=== PATIENT | female | born 1995 | race Caucasian/White ===

== ENCOUNTER 2017-12-25 19:06 | Emergency (ER) | payer SELFPAY ==
[~2017-12-25] VITALS: Ht 160 cm; Wt 66.0 kg
[2017-12-25 19:12] VITALS: BP 113/75
[2017-12-25 19:39] LABS: BASOPHILS # (AUTO) 0.07 x10^3/uL (0-0.1); BASOPHILS % (AUTO) 0 % (0-1); EOSINOPHILS # (AUTO) 0.03 x10^3/uL (0-0.4); EOSINOPHILS % (AUTO) 0 % (1-7); LYMPHOCYTES # (AUTO) 1.97 x10^3/uL (1-3.4); LYMPHOCYTES % (AUTO) 12 % (22-44); MD NO; MEAN CORPUSCULAR HEMOGLOBIN 29.3 pg (27.0-34.8); MEAN CORPUSCULAR HGB CONC 33.5 g/dL (32.4-35.8); MEAN CORPUSCULAR VOLUME 87.6 fL (80-100); MEAN PLATELET VOLUME 6.7 fL (7.4-10.4); MONOCYTES # (AUTO) 1.05 x10^3/uL (0.2-0.8); MONOCYTES % (AUTO) 6 % (2-9); NEUTROPHILS # (AUTO) 13.28 x10^3/uL (1.8-6.8); NEUTROPHILS % (AUTO) 81 % (42-75); PLATELET COUNT 321 x10^3/uL (130-400); RED BLOOD COUNT 4.56 x10^6/uL (3.82-5.3); RED CELL DISTRIBUTION WIDTH 12.5 % (9.6-15.2)
[2017-12-25 19:49] LABS: ALANINE AMINOTRANSFERASE 14 U/L (12-78); ALBUMIN 3.2 g/dL (3.4-5.0); ANION GAP 7 mmol/L (5-15); CALCIUM 8.4 mg/dL (8.5-10.1); CHLORIDE 106 mmol/L (98-107); CREATININE 0.84 mg/dL (0.55-1.02)
[2017-12-25 19:54] LABS: ALKALINE PHOSPHATASE 77 U/L (45-117); BILIRUBIN,TOTAL 0.5 mg/dL (0.2-1.0); TOTAL PROTEIN 7.7 g/dL (6.4-8.2)
[2017-12-25 20:13] LABS: MICROSCOPIC INDICATED
[2017-12-25 20:14] LABS: CULTURE INDICATED? YES
[2017-12-25] MEDS ORDERED: HYDROmorphone 2 MG/ML, 1ML ONE (20:29)
[2017-12-25] MEDS ORDERED: HYDROmorphone 2 MG/ML, 1ML IM ONE (20:30)
[2017-12-25] MEDS ORDERED: ONDANSETRON ODT 4 MG PO ONE (20:30)
[2017-12-25] MEDS ORDERED: ONDANSETRON ODT 4 MG ONE (20:30)
== END 2017-12-25 21:29 | disposition home or self-care (01) ==
LOC: ED 21:23
DX: N30.00 Acute cystitis without hematuria (principal)
CPT/HCPCS: 36415; 74176; 80053; 81001; 84703; 85025; 87077; 87086; 87186; 96372; 99285; J1170; Q0162

== ENCOUNTER 2017-12-28 16:50 | Emergency (ER) | payer SELFPAY ==
[~2017-12-28] VITALS: Ht 160 cm; Wt 65.8 kg
[2017-12-28] MEDS ORDERED: ACETAMINOPHEN 500 MG TABLET ONE (17:43)
[2017-12-28] MEDS ORDERED: SODIUM CHLORIDE FLUSH 10ML SYR IVF ONE (18:00)
[2017-12-28] MEDS ORDERED: ACETAMINOPHEN 500 MG TABLET PO ONE (18:00)
[2017-12-28] MEDS ORDERED: SODIUM CHLORIDE 0.9% 1,000ML IVBOLUS ONE (18:00)
[2017-12-28 18:47] LABS: ALANINE AMINOTRANSFERASE 19 U/L (12-78); ALBUMIN 2.7 g/dL (3.4-5.0); ANION GAP 9 mmol/L (5-15); CALCIUM 8.8 mg/dL (8.5-10.1); CHLORIDE 101 mmol/L (98-107); CREATININE 0.67 mg/dL (0.55-1.02)
[2017-12-28 18:52] LABS: ALKALINE PHOSPHATASE 91 U/L (45-117); BILIRUBIN,TOTAL 0.4 mg/dL (0.2-1.0); TOTAL PROTEIN 7.4 g/dL (6.4-8.2)
[2017-12-28] MEDS ORDERED: CEFTRIAXONE PMX 1GM/50ML 50 ML ONE (18:58)
[2017-12-28] MEDS ORDERED: CEFTRIAXONE 1,000 MG in SODIUM CHLORIDE 0.9% 50 ML IV ONE (19:00)
[2017-12-28 19:01] LABS: BASOPHILS # (AUTO) 0.02 x10^3/uL (0-0.1); BASOPHILS % (AUTO) 0 % (0-1); EOSINOPHILS % (AUTO) 0 % (1-7); LYMPHOCYTES # (AUTO) 1.43 x10^3/uL (1-3.4); LYMPHOCYTES % (AUTO) 13 % (22-44); MD NO; MEAN CORPUSCULAR HEMOGLOBIN 29.3 pg (27.0-34.8); MEAN CORPUSCULAR HGB CONC 33.6 g/dL (32.4-35.8); MEAN PLATELET VOLUME 6.8 fL (7.4-10.4); MONOCYTES # (AUTO) 1.12 x10^3/uL (0.2-0.8); MONOCYTES % (AUTO) 11 % (2-9); NEUTROPHILS # (AUTO) 8.09 x10^3/uL (1.8-6.8); NEUTROPHILS % (AUTO) 76 % (42-75); PLATELET COUNT 347 x10^3/uL (130-400); RED BLOOD COUNT 4.15 x10^6/uL (3.82-5.3)
[2017-12-28 20:00] LABS: CULTURE INDICATED? YES; MICROSCOPIC INDICATED
[2017-12-28 20:13] VITALS: BP 108/60
== END 2017-12-28 20:35 | disposition home or self-care (01) ==
LOC: ED 19:34
DX: N30.01 Acute cystitis with hematuria (principal)
CPT/HCPCS: 36415; 80053; 81001; 83605; 84145; 84703; 85025; 87040; 87086; 96365; 99284; J0696; J7030

== ENCOUNTER 2019-06-13 13:07 | Emergency (ER) | payer SELFPAY ==
[~2019-06-13] VITALS: Ht 160 cm; Wt 60.1 kg
[2019-06-13 13:09] VITALS: BP 115/64
[2019-06-13] MEDS ORDERED: KETOROLAC 30 MG/1 ML IM ONE (14:00)
== END 2019-06-13 14:35 | disposition home or self-care (01) ==
LOC: ED 14:20
DX: S93.401A Sprain of unspecified ligament of right ankle, initial encounter (principal); G89.29 Other chronic pain; M25.571 Pain in right ankle and joints of right foot; X58.XXXA Exposure to other specified factors, initial encounter; Y93.9 Activity, unspecified; Y92.89 Other specified places as the place of occurrence of the external cause; Y99.8 Other external cause status
CPT/HCPCS: 99283

== ENCOUNTER 2019-10-08 01:16 | Emergency (ER) | payer SELFPAY ==
[~2019-10-08] VITALS: Ht 160 cm; Wt 64.0 kg
[2019-10-08 01:19] VITALS: BP 120/74
[2019-10-08] MEDS ORDERED: INHALER INH (01:36)
== END 2019-10-08 02:19 | disposition home or self-care (01) ==
LOC: ED 02:03
DX: K02.9 Dental caries, unspecified (principal); K08.89 Other specified disorders of teeth and supporting structures
CPT/HCPCS: 99283

== ENCOUNTER 2020-01-30 14:40 | Emergency (ER) | payer SELFPAY ==
[~2020-01-30] VITALS: Ht 160 cm; Wt 62.5 kg
[~2020-01-30 14:40] MED LIST: INHALER INH
[2020-01-30 14:50] VITALS: BP 117/65
[2020-01-30] MEDS ORDERED: KETOROLAC 30 MG/1 ML IM ONE (15:30)
[2020-01-30] MEDS ORDERED: KETOROLAC 30 MG/1 ML ONE (16:19)
--- NOTE | 2020-01-30 16:30 | NUR ---
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 MEDICATED NOTED ON JUL FOR PAIN. PT HAS HAD TORADOL PREVIOUSLY. AMBULATED TO DISCHARGE WINDOW STEADY GAIT.
== END 2020-01-30 16:37 | disposition home or self-care (01) ==
LOC: ED 15:10
DX: S83.91XA Sprain of unspecified site of right knee, initial encounter (principal); X58.XXXA Exposure to other specified factors, initial encounter; Y93.89 Activity, other specified; Y92.89 Other specified places as the place of occurrence of the external cause; Y99.8 Other external cause status
CPT/HCPCS: 29505; 73564; 96372; 99283; J1885; 96365

== ENCOUNTER 2020-05-31 17:13 | Emergency (ER) | payer MEDICAID ==
[~2020-05-31] VITALS: Ht 160 cm; Wt 62.5 kg
[2020-05-31 17:20] VITALS: BP 125/67
--- NOTE | 2020-05-31 17:36 | NUR ---
PT WAS DX WITH UTI ON FRIDAY AT [facility]. SENT HOME WITH ABX. "THE ABX ARENT WORKING. ITS GETTING WORSE" PT CAME IN CO PAINFUL URINATION AFREBRILE, VSS
--- NOTE | 2020-05-31 17:44 | NUR ---
CC URINE SAMPLE WALKED TO LAB
[2020-05-31 17:58] LABS: MICROSCOPIC INDICATED
[2020-05-31] MEDS ORDERED: CEFDINIR 300 MG CAPSULE ONE (18:54)
[2020-05-31] MEDS ORDERED: CEFDINIR 300 MG CAPSULE PO/NG ONE (19:00)
== END 2020-05-31 19:02 | disposition home or self-care (01) ==
LOC: ED 18:14
DX: O23.41 Unspecified infection of urinary tract in pregnancy, first trimester (principal); Z3A.01 Less than 8 weeks gestation of pregnancy
CPT/HCPCS: 36415; 81001; 84702; 86901; 87086; 99283